=== PATIENT | female | born 1955 | race Caucasian/White ===

== ENCOUNTER 2019-03-17 06:48 | Inpatient (IN) | payer MEDICARE, MEDICAID ==
[2019-03-10 14:05] LABS: BASOPHILS % (AUTO) 0.3 % (0-1); EOSINOPHILS # (AUTO) 0.1 X10'3 (0-0.9); LYMPHOCYTES # (AUTO) 2.3 X10'3 (1.1-4.8); LYMPHOCYTES % (AUTO) 30.6 % (21-51); MEAN CORPUSCULAR HEMOGLOBIN 32.5 PG (27.0-31.0); MEAN CORPUSCULAR HGB CONC 34.2 g/dL (33.0-36.5); MEAN CORPUSCULAR VOLUME 95.2 FL (78-98); MEAN PLATELET VOLUME 9.4 FL (7.4-10.4); MONOCYTES # (AUTO) 0.6 X10'3 (0-0.9); MONOCYTES % (AUTO) 7.2 % (2-12); NEUTROPHILS # (AUTO) 4.7 X10'3 (1.8-7.7); NEUTROPHILS % (AUTO) 60.9 % (42-75); PRE OP HEMATOCRIT 40.5 % (35.0-45.0); PRE OP HEMOGLOBIN 13.8 g/dL (12.0-16.0); PRE OP PLATELET COUNT 237 X10'3 (140-440); RED BLOOD COUNT 4.25 X10'6 (4.20-5.60); RED CELL DISTRIBUTION WIDTH 13.1 % (11.5-14.5)
[2019-03-10 14:06] LABS: CLARITY,URINE SLIGHTLY CLOUDY (Clear); COLOR,URINE YELLOW (Yellow); GLUCOSE, URINE NEGATIVE (Neg); KETONES,URINE NEGATIVE (Neg); LEUKOCYTE ESTERASE ,URINE NEGATIVE (Neg); NITRITES, URINE NEGATIVE (Neg); OCCULT BLOOD,URINE NEGATIVE (Neg); PROTEIN,URINE NEGATIVE (Neg); UROBILINOGEN,URINE 0.2 E.U/dL (0.2-1.0)
[2019-03-10 14:07] LABS: UA COLLECTION TYPE CLN CATCH MIDSTREAM
[2019-03-10 14:11] LABS: MUCUS STRANDS MANY /LPF (Neg); SQUAMOUS EPITHELIAL CELL,UR MODERATE /LPF (FEW)
[2019-03-10 14:12] LABS: BACTERIA,URINE FEW /HPF (Neg)
[2019-03-10 14:13] LABS: RBC,URINE 0-2 /HPF (0-2); WBC,URINE 0-4 /HPF (0-4)
[2019-03-10 14:20] LABS: ALBUMIN 3.5 G/DL (3.4-5.0); ALBUMIN/GLOBULIN RATIO 0.9 (1.1-1.5); ALKALINE PHOSPHATASE 80 IU/L (46-116); BLOOD UREA NITROGEN 17 MG/DL (7-18); BUN/CREATININE RATIO 20.7 (6.6-38.0); CALCIUM 8.7 MG/DL (8.5-10.1); CHLORIDE 107 MMOL/L (99-107); CREATININE 0.82 MG/DL (0.40-0.90); PRE OP ALT 35 U/L (30-65); PRE OP ANION GAP 7 (8-16); PRE OP AST 18 U/L (10-37); PRE OP BILIRUB, TOTAL 0.4 MG/DL (0.0-1.0); PRE OP GLUCOSE 123 MG/DL (70-104); PRE OP POTASSIUM 3.7 MMOL/L (3.4-5.1); PRE OP SODIUM 143 MMOL/L (135-145); TOTAL PROTEIN 7.4 G/DL (6.4-8.2); eGFR 70 ML/MIN
[2019-03-17] VITALS (18 sets, daily range): BP systolic 126–168; BP diastolic 48–80
[~2019-03-17] VITALS: Ht 165.1 cm; Wt 136.2 kg
[~2019-03-17 06:48] MED LIST: ALBU8HFA PO; albuterol 2.5 MG/3 ML nebule NEB ONE; ceFAZolin 1,000 MG/D5W 50ML IVPB Premixed bag IV ONE; cefazolin/dext.iso 2gm/100ml 100 ML IV ONE; famotidine 20mg tablet PO ONE; ringers solution, lacted 1,000 ML IV SCH
[2019-03-17] MEDS ORDERED: ceFAZolin 1000mg inj ONE (06:54)
[2019-03-17] MEDS ORDERED: bacitracin 15gm ointment TP ONE (06:54)
[2019-03-17] MEDS ORDERED: BUPIVAcaine/PF 2.5 mg/ml (0.25%) 30ml vial ONE (06:55)
[2019-03-17] MEDS ORDERED: fentaNYL /PF 50mcg/ml 5ml ampule ONE (09:54)
[2019-03-17] MEDS ORDERED: sevoflurane 250ml liquid IH ONE (10:31)
[2019-03-17] MEDS ORDERED: acetaminophen 1000 MG/100ml vial IV ONE (10:31)
[2019-03-17] MEDS ORDERED: rocuronium 10mg/ml inj IV ONE (10:31)
[2019-03-17] MEDS ORDERED: ringers solution, lacted 1,000 ML IV SCH (10:34)
[2019-03-17] MEDS ORDERED: proCHLORperazine 10 MG/2 ml inj IV PRN (10:35)
[2019-03-17] MEDS ORDERED: morphine 4 MG/ML inj SYRINge IV PRN (10:35)
[2019-03-17] MEDS ORDERED: meperidine/PF 25mg/ml syringe IV PRN ×3 (10:35)
[2019-03-17] MEDS ORDERED: ondansetron/PF 4mg/2ml inj IV PRN (10:35)
[2019-03-17] MEDS ORDERED: ondansetron/PF 4mg/2ml inj ONE (11:22)
[2019-03-17] MEDS ORDERED: neostigmine methylsulfate 1 MG/ML 10ml vial ONE (11:23)
[2019-03-17] MEDS ORDERED: dexamethasone sod phosphate 4mg/ml inj. ONE (11:23)
[2019-03-17] MEDS ORDERED: propofol inj 20 ML IV ONE (11:23)
[2019-03-17] MEDS ORDERED: LIDOcaine 1% (10mg/ml) 2ml vial ONE (11:23)
[2019-03-17] MEDS ORDERED: succinylcholine 20mg/ml inj IV ONE (11:23)
[2019-03-17] MEDS ORDERED: glycopyrrolate 0.2mg/ml inj ONE (11:23)
--- NOTE | 2019-03-17 11:37 | NUR ---
Received from OR via SURGICAL BED , accompanied by Anesthesiologist APURVA and report given by Anesthesiolgist. PATIENT WITH 20G PIV IN LEFT UE RUNNING LR AT 100. MEDICATED FOR PAIN UPON ARRIVAL. VAC TO LEFT LOWER ABDOMEN. SCDS DONNED Addendum: 03/17/19 at 1201 by Gabriel Singh RN, RN Amended: Links added.
[2019-03-17] MEDS ORDERED: ipratropium/albuterol 3ml nebule NEB ONE (12:15)
[2019-03-17] MEDS ORDERED: HYDROcodone/acetaminophen 10/325mg tab PO PRN (12:30)
--- NOTE | 2019-03-17 12:47 | NUR ---
ALL CRITERIA FOR TRANSFER TO THE FLOOR HAS BEEN ACHIEVED. VSS. BED LOW, CALL LIGHT AND VS. SET IN PLACE. RN PRESENT TO ACCEPT CARE. PATIENT RESTING COMFORTABLY IN BED. BELONGINGS SENT WITH PATIENT. DRESSINGS CDI. PROVENA STILL INTACT TO LEFT LOW ABDOMEN. NO LEAKS. IRMA PATEL PRESENT TO ACCEPT PATIENT. PAIN CONTROLLED AT THIS TIME. CARE TURNED OVER TO AMANDA- STATES THAT SHE WILL PAGE RESPIRATORY TO GIVE TREATMENT. Addendum: 03/17/19 at 1258 by Gabriel Arredondo - IRMA SOLIS Amended: Links added.
[2019-03-17] MEDS: morphine 4 MG/ML inj SYRINge IV PRN ×2 (12:54→17:35)
--- NOTE | 2019-03-17 14:45 | NUR ---
Patient in room [facility]. I have received report from nakul johnson and had the opportunity to ask questions and assume patient care. RT paged for tmt patient commenced on post op vitals , friend at bedside appears stable wound vac provena in place. will continue to monitor.
[2019-03-17] MEDS: albuterol 2.5 MG/3 ML nebule NEB PRN (16:09)
--- NOTE | 2019-03-17 17:00 | NUR ---
Patient ambulated and voided in BR Pain relief given with effect.
--- NOTE | 2019-03-17 18:10 | NUR ---
Patient in room [facility]. I have received report from Loni SOLIS and had the opportunity to ask questions and assume patient care.
--- NOTE | 2019-03-17 18:17 | NUR ---
Problems reprioritized. Patient report given, questions answered & plan of care reviewed with anthony SOLIS.
--- NOTE | 2019-03-17 18:30 | NUR ---
Patient in room [facility]. I have received report from Loni SOLIS and had the opportunity to ask questions and assume patient care.
[2019-03-17] MEDS: HYDROcodone/acetaminophen 10/325mg tab PO PRN (20:30)
[2019-03-18] VITALS: BP 130/56
--- NOTE | 2019-03-18 06:11 | NUR ---
Problems reprioritized. Patient report given, questions answered & plan of care reviewed with Loni SOLIS.
--- NOTE | 2019-03-18 06:11 | NUR ---
Problems reprioritized. Patient report given, questions answered & plan of care reviewed with Loni SOLIS.
--- NOTE | 2019-03-18 06:44 | NUR ---
Patient in room [facility]. I have received report from Loretta SOLIS and had the opportunity to ask questions and assume patient care.
[2019-03-18 07:00] VITALS: BP 154/78
[2019-03-18] MEDS: albuterol 2.5 MG/3 ML nebule NEB PRN (07:53)
[2019-03-18] MEDS: HYDROcodone/acetaminophen 10/325mg tab PO PRN (09:06)
[2019-03-18] MEDS ORDERED: DOCU-148 PO (09:09)
--- NOTE | 2019-03-18 10:54 | NUR ---
patient seen by Dr Mazariegos is for discharge. All cares given. All Dc instructions given to patient. patient still has provena in place. Instructed on use and to call Dr Mazariegos office if has any problems.. Dc home via private car with friend in stable condition. 1000hrs.
== END 2019-03-18 10:00 | disposition home or self-care (01) | DRG 354 ==
LOC: PAS 06:48 → SUR 3N 11:45
PROVIDERS: ADMIT Surgery; ATTEND Surgery
PROC: 0WQF0ZZ Repair Abdominal Wall, Open Approach (ICD-10-PCS; principal; 2019-03-17 10:31)
DX: K43.9 Ventral hernia without obstruction or gangrene (principal); Z68.43 Body mass index [BMI] 50.0-59.9, adult; E66.01 Morbid (severe) obesity due to excess calories
CPT/HCPCS: 36415; 80053; 81001; 82948; 85025; 93005; 94640; 94760; A4618; A7000; G0378; J0131; J0330; J0690; J1100; J2001; J2175; J2270; J2405; J2704; J2710; J3010; J3490; J7120

== ENCOUNTER 2019-03-20 18:23 | Emergency (ER) | payer MEDICARE, MEDICAID ==
[~2019-03-20] VITALS: Ht 165.1 cm; Wt 131.0 kg
[~2019-03-20 18:23] MED LIST changes: +DOCU-148 PO; -albuterol 2.5 MG/3 ML nebule NEB ONE; -ceFAZolin 1,000 MG/D5W 50ML IVPB Premixed bag IV ONE; -cefazolin/dext.iso 2gm/100ml 100 ML IV ONE; -famotidine 20mg tablet PO ONE; -ringers solution, lacted 1,000 ML IV SCH
--- NOTE | 2019-03-20 20:15 | NUR ---
assisted Dr Castro with rectal exam, he states there is no stool in the anal vault. Pt cleansed and redressed.
[2019-03-20] MEDS ORDERED: lactulose 20gm/30ml cup PO ONE (21:20)
[2019-03-20 21:31] VITALS: BP 145/76
--- NOTE | 2019-03-22 12:09 | NUR ---
Case management DC follow up: spoke to pt via telephone: reports only drinking fluids and constipation is gradually being relieved. verbalized understanding of staying hydrated, avoid straining. starting on miralax once in the morning until bowel retrain, introduce to more solid food as pt feels comfortable. pt has a little trepidation with eating solid food. understands being mobile helps. prune juice warmed, water w/lemon. denies blood in stool r/t hx hemorrhoids. Pt denies acute abd pain, distention. Denies sob, resp distress, NV, dizziness, cp, acute general pain. remains afebrile. understands meds and why prescribed. taking as ordered, no ase noted. verbalizes understanding of s/s that would warrant 9-11/ER visit for evaluation. needs met, questions answered at DC. no further questions at this time.
== END 2019-03-20 21:28 | disposition home or self-care (01) ==
LOC: ER 18:26
DX: K59.09 Other constipation (principal); K64.4 Residual hemorrhoidal skin tags; G89.18 Other acute postprocedural pain; J45.909 Unspecified asthma, uncomplicated; Z90.49 Acquired absence of other specified parts of digestive tract; Z88.2 Allergy status to sulfonamides; Z88.5 Allergy status to narcotic agent; Z88.8 Allergy status to other drugs, medicaments and biological substances; Z79.899 Other long term (current) drug therapy
CPT/HCPCS: 74018; 99283

== ENCOUNTER 2020-04-19 05:55 | Observation (INO) | payer MEDICARE, MEDICAID ==
[2020-04-12 12:16] LABS: CLARITY,URINE CLOUDY (Clear); COLOR,URINE YELLOW (Yellow); GLUCOSE, URINE NEGATIVE (Neg); KETONES,URINE NEGATIVE (Neg); LEUKOCYTE ESTERASE ,URINE TRACE (Neg); NITRITES, URINE NEGATIVE (Neg); OCCULT BLOOD,URINE NEGATIVE (Neg); PROTEIN,URINE NEGATIVE (Neg); UROBILINOGEN,URINE 0.2 E.U/dL (0.2-1.0)
[2020-04-12 12:18] LABS: BASOPHILS % (AUTO) 0.7 % (0-1); EOSINOPHILS # (AUTO) 0.1 X10'3 (0-0.9); EOSINOPHILS % (AUTO) 0.9 % (0-6); LYMPHOCYTES # (AUTO) 2.1 X10'3 (1.1-4.8); LYMPHOCYTES % (AUTO) 31.9 % (21-51); MEAN CORPUSCULAR HEMOGLOBIN 32.3 PG (27.0-31.0); MEAN CORPUSCULAR HGB CONC 33.4 g/dL (33.0-36.5); MEAN CORPUSCULAR VOLUME 96.8 FL (78-98); MEAN PLATELET VOLUME 10.2 FL (7.4-10.4); MONOCYTES # (AUTO) 0.7 X10'3 (0-0.9); MONOCYTES % (AUTO) 10.4 % (2-12); NEUTROPHILS # (AUTO) 3.7 X10'3 (1.8-7.7); NEUTROPHILS % (AUTO) 56.1 % (42-75); PRE OP HEMATOCRIT 40.3 % (35.0-45.0); PRE OP HEMOGLOBIN 13.5 g/dL (12.0-16.0); PRE OP PLATELET COUNT 224 X10'3 (140-440); RED BLOOD COUNT 4.17 X10'6 (4.20-5.60); RED CELL DISTRIBUTION WIDTH 13.3 % (11.5-14.5)
[2020-04-12 12:25] LABS: UA COLLECTION TYPE CLN CATCH MIDSTREAM
[2020-04-12 12:29] LABS: ALBUMIN 3.3 G/DL (3.4-5.0); ALBUMIN/GLOBULIN RATIO 0.8 (1.1-1.5); ALKALINE PHOSPHATASE 68 IU/L (46-116); BLOOD UREA NITROGEN 19 MG/DL (7-18); BUN/CREATININE RATIO 23.8 (6.6-38.0); CHLORIDE 107 MMOL/L (99-107); PRE OP ALT 37 U/L (30-65); PRE OP ANION GAP 5 (8-16); PRE OP AST 23 U/L (10-37); PRE OP BILIRUB, TOTAL 0.5 MG/DL (0.0-1.0); PRE OP GLUCOSE 94 MG/DL (70-104); PRE OP SODIUM 141 MMOL/L (135-145); TOTAL CARBON DIOXIDE 28.6 MMOL/L (24-32); TOTAL PROTEIN 7.3 G/DL (6.4-8.2); eGFR 72 ML/MIN
[2020-04-12 12:42] LABS: BACTERIA,URINE FEW /HPF (Neg); RBC,URINE 0-2 /HPF (0-2); SQUAMOUS EPITHELIAL CELL,UR FEW /LPF (FEW); WBC,URINE 0-4 /HPF (0-4)
[2020-04-19] VITALS (17 sets, daily range): BP systolic 129–177; BP diastolic 74–94
[~2020-04-19] VITALS: Ht 165.1 cm; Wt 136.8 kg
[~2020-04-19 05:55] MED LIST changes: +CHOL100025 PO; -DOCU-148 PO; +VALA-7 CORPAK; +albuterol 2.5 MG/3 ML nebule NEB ONE; +ceFAZolin inj. 3,000 MG in normal saline 100ml IV soln 100 ML IV ONE; +famotidine 20mg tablet PO ONE
[2020-04-19] MEDS ORDERED: LIDOcaine 1% (10mg/ml) 2ml vial ONE (06:19)
[2020-04-19] MEDS ORDERED: DOCU-151 PO (06:37)
[2020-04-19] MEDS ORDERED: ALBU2.5V12 NEB (06:40)
[2020-04-19] MEDS: ringers solution, lacted 1,000 ML IV SCH ×2 (06:45→17:30)
[2020-04-19] MEDS ORDERED: BUPIVAcaine/PF 2.5 mg/ml (0.25%) 30ml vial ONE (07:24)
[2020-04-19] MEDS ORDERED: BUPIVAcaine/PF 7.5mg/ml (0.75%) 10ml vial ONE (07:24)
[2020-04-19] MEDS ORDERED: morphine 2 MG/ML inj. syringe IV PRN (08:35)
[2020-04-19] MEDS ORDERED: morphine 4 MG/ML inj SYRINge IV PRN (08:35)
[2020-04-19] MEDS ORDERED: hydrALAZINE 20mg/ml inj. IV PRN (08:35)
[2020-04-19] MEDS ORDERED: ringers solution, lacted 1,000 ML IV SCH (08:35)
[2020-04-19] MEDS ORDERED: proCHLORperazine 10 MG/2 ml inj IV PRN (08:35)
[2020-04-19] MEDS ORDERED: acetaminophen 1,000mg/100ml IV 100 ML IV PRN (08:35)
[2020-04-19] MEDS ORDERED: meperidine/PF 25mg/ml syringe IV PRN ×2 (08:35)
[2020-04-19] MEDS ORDERED: labetalol 20mg/4ml (5mg/ml) syringe IV PRN (08:35)
[2020-04-19] MEDS ORDERED: ondansetron/PF 4mg/2ml inj IV PRN ×2 (08:35→18:25)
[2020-04-19] MEDS ORDERED: sevoflurane 250ml liquid IH ONE (08:46)
[2020-04-19] MEDS ORDERED: midazolam 1 mg/ML 2ml injection ONE (08:51)
[2020-04-19] MEDS ORDERED: fentaNYL /PF 50mcg/ml 5ml ampule ONE (08:52)
[2020-04-19] MEDS ORDERED: propofol inj 20 ML IV ONE (09:11)
[2020-04-19] MEDS ORDERED: dexamethasone sod phosphate 4mg/ml inj. ONE (09:11)
[2020-04-19] MEDS ORDERED: rocuronium 10mg/ml inj IV ONE ×3 (09:11→12:19)
[2020-04-19] MEDS ORDERED: ondansetron/PF 4mg/2ml inj ONE (09:11)
[2020-04-19] MEDS ORDERED: LIDOcaine 2% (20mg/ml) 5ml vial ONE (09:11)
[2020-04-19] MEDS ORDERED: BUPIVAcaine/PF 2.5mg/ml (0.25%) 10ml vial ONE (09:22)
[2020-04-19] MEDS ORDERED: BUPIVACAINE liposomal/PF 13.3 MG/ML vial IM ONE (09:22)
[2020-04-19] MEDS ORDERED: sugammadex 200mg/2ml injection IV ONE (12:42)
--- NOTE | 2020-04-19 13:30 | NUR ---
Received from OR via BED , accompanied by Anesthesiologist DR MIXON and report given by Anesthesiolgist, PATIENT WAKING UP, DENIES PAIN, V/S WNL, CSM INTACT, ABDOMEN INC CDI AT THIS TIME, SCD ON, 20G PIV TO MARCELL, SCD ON.
[2020-04-19] MEDS: meperidine/PF 25mg/ml syringe IV PRN ×4 (13:43→15:40)
[2020-04-19] MEDS ORDERED: naloxone 0.4 mg/ml inj IV PRN (13:50)
[2020-04-19] MEDS ORDERED: CADD PCA waste documentation MC PRN (13:50)
[2020-04-19] MEDS: HYDROmorphone/NS 1 mg/ml CADD 50 ML IV SCH ×6 (14:28→23:00)
--- NOTE | 2020-04-19 14:30 | NUR ---
I have received report from Aaliyah SOLISdental instrument maker and had the opportunity to ask questions. Will assume patient care once to unit.
--- NOTE | 2020-04-19 14:50 | NUR ---
PATIENT A&OX4, PAIN 6/10 PER PT, CADD SET UP PT EDUCATION GIVEN, WILL NEED REINFORCEMENT, V/S WNL, NEUROVASCULAR CHECKS INTACT, 20G PIV LUE, NOY WITH GOOD CSM. PATIENT TAKEN TO WITH ALL BELONGINGS AND HOOKED UP TO MONITORS IN ROOM 355A AND REPORT GIVEN TO MEDICAL RN WHO HAS TAKEN OVER PATIENT CARE.
--- NOTE | 2020-04-19 15:00 | NUR ---
Pt arrived to Med/Surg, taken to room 355A via guroralia. Pt sleepy but awake, oriented and appropriate. VSS. PIV patent infusing fluids per MD orders Addendum: 04/19/20 at 1802 by Jeri Rodriguez RN Reinstructed pt in Dilaudid CADD FURNACE TAPPER usage with pt verbalizing and now demonstrating understanding. Pt c/o abdominal incisional pain 08/19 at this time. Will continue to monitor.
[2020-04-19] MEDS ORDERED: non-formulary drug (albuterol inhaler (Pro-Air Inhaler) 0 PUFFS) PO PRN (16:37)
[2020-04-19] MEDS ORDERED: VALA500T41 PO (16:39)
[2020-04-19] MEDS ORDERED: docusate sod 100mg capsule PO PRN (16:40)
[2020-04-19] MEDS ORDERED: valacyclovir 500mg tablet PO PRN (16:40)
--- NOTE | 2020-04-19 17:30 | NUR ---
Pt refused 2 RN skin check at 1630 due to visitor at bedside. Pt currently states she wants to wait and rest about an hour before skin check. Will continue to monitor.
[2020-04-19] MEDS: normal saline 1000ml 1,000 ML IV SCH ×2 (17:44→23:50)
--- NOTE | 2020-04-19 18:06 | NUR ---
phone call to Dr Quintanilla, re: orders needed for Diet and Activity, with MD stating he will review orders and add additional orders PRN.
[2020-04-19] MEDS ORDERED: HYDROcodone/acetaminophen 10/325mg tab PO PRN (18:25)
[2020-04-19] MEDS ORDERED: normal saline 1000ml 1,000 ML IV SCH (18:30)
--- NOTE | 2020-04-19 18:30 | NUR ---
Patient in room [facility]. I have received report from IRMA Wilcox and had the opportunity to ask questions and assume patient care.
--- NOTE | 2020-04-19 18:31 | NUR ---
Problems reprioritized. Patient report given, questions answered & plan of care reviewed with Ellen SOLIS.
[2020-04-19] MEDS: Potassium Cl inj 20 MEQ in ringers solution, lacted 1,000 ML IV SCH (21:34)
[2020-04-20] VITALS: BP 153/94
[2020-04-20] MEDS: HYDROmorphone/NS 1 mg/ml CADD 50 ML IV SCH ×6 (01:00→11:00)
--- NOTE | 2020-04-20 02:55 | NUR ---
Pt refused walking post-op before 9 am. Pt was educated on the importance of activity after surgery. Pt is able to 1x assist to the bedside commode.
[2020-04-20 04:00] VITALS: BP 140/67
[2020-04-20] MEDS: albuterol 2.5 MG/3 ML nebule NEB PRN ×2 (05:38→10:32)
[2020-04-20] MEDS: Potassium Cl inj 20 MEQ in ringers solution, lacted 1,000 ML IV SCH ×2 (05:48→10:35)
--- NOTE | 2020-04-20 06:06 | NUR ---
Pt reported that she has been passing a little bit of gas and has felt "gurgling" in her stomach.
[2020-04-20 06:17] LABS: BASOPHILS % (AUTO) 0.2 % (0-1); EOSINOPHILS % (AUTO) 0 % (0-6); HEMATOCRIT 37.3 % (35.0-45.0); HEMOGLOBIN 12.5 g/dl (12.0-16.0); LYMPHOCYTES % (AUTO) 7.5 % (21-51); MEAN CORPUSCULAR HEMOGLOBIN 32.6 PG (27.0-31.0); MEAN CORPUSCULAR HGB CONC 33.6 g/dL (33.0-36.5); MEAN CORPUSCULAR VOLUME 97.1 FL (78-98); MEAN PLATELET VOLUME 10.2 FL (7.4-10.4); MONOCYTES % (AUTO) 7.7 % (2-12); NEUTROPHILS # (AUTO) 11.6 X10'3 (1.8-7.7); NEUTROPHILS % (AUTO) 84.6 % (42-75); PLATELET COUNT 209 X10'3 (140-440); RED BLOOD COUNT 3.84 X10'6 (4.20-5.60); RED CELL DISTRIBUTION WIDTH 13.4 % (11.5-14.5); WHITE BLOOD COUNT 13.7 X10'3 (4.5-11.0)
[2020-04-20 06:29] LABS: ANION GAP 6 (8-16); BLOOD UREA NITROGEN 16 MG/DL (7-18); BUN/CREATININE RATIO 19.8 (6.6-38.0); CALCIUM 8.3 MG/DL (8.5-10.1); CHLORIDE 106 MMOL/L (99-107); CREATININE 0.81 MG/DL (0.40-0.90); GLUCOSE 147 MG/DL (70-104); POTASSIUM 4.5 MMOL/L (3.5-5.1); SODIUM 138 MMOL/L (135-145); eGFR 71 ML/MIN
--- NOTE | 2020-04-20 06:44 | NUR ---
Problems reprioritized. Patient report given, questions answered & plan of care reviewed with IRMA Bryant.
[2020-04-20] MEDS: normal saline 1000ml 1,000 ML IV SCH (09:50)
[2020-04-20 11:00] VITALS: BP 154/80
--- NOTE | 2020-04-20 14:30 | NUR ---
Discussed discharge paperwork with pt. Dr. Quintanilla stated his office would call in Tramadol to pt's preferred pharmacy at [facility]. Discussed possible ASE of Tramadol. Discussed diet, post-op care for procedure, reasons to call MD reasons to go to ER, post-op risks, pain management, weight restrictions, exercise, hydration, incision care, and s/sx of general infection. Pt. gave good verbal and non-verbal feedback. Pt. is aware she need to f/u with her PCP and [facility] within 2 weeks and contact information was given to her. IV DC'd, cannula intact, no s/sx bleeding, pressure bandage applied. Belongs gathered and taken home with pt. Pt's friend came to take pt. home and brought her clothes to change into.
== END 2020-04-20 14:52 | disposition home or self-care (01) ==
LOC: PAS 05:55 → SUR 3N 15:18
PROVIDERS: ADMIT Surgery; ATTEND Surgery
DX: K42.9 Umbilical hernia without obstruction or gangrene (principal); K43.2 Incisional hernia without obstruction or gangrene; Z20.822 Contact with and (suspected) exposure to COVID-19; I10 Essential (primary) hypertension; J45.909 Unspecified asthma, uncomplicated; Z98.49 Cataract extraction status, unspecified eye; Z90.49 Acquired absence of other specified parts of digestive tract; Z90.710 Acquired absence of both cervix and uterus; Z79.899 Other long term (current) drug therapy; Z88.5 Allergy status to narcotic agent; Z88.1 Allergy status to other antibiotic agents; Z88.3 Allergy status to other anti-infective agents
CPT/HCPCS: 36415; 49652; 49656; 80048; 80053; 81001; 82948; 85025; 87088; 87635; 93005; 94640; 94760; 96361; 96365; 96366; 96375; 96376; C1758; C1781; C9290; C9399; G0378; J0690; J1100; J2001; J2175; J2250; J2405; J2704; J3010; J3480; J3490; J7030; A4215; A4618; J1170; J7120